=== PATIENT | female | born 1990 | race Caucasian/White ===

== ENCOUNTER 2021-10-23 19:38 | Emergency (ER) | payer BC ==
[~2021-10-23] VITALS: Ht 170 cm; Wt 80.0 kg
[2021-10-23 19:43] VITALS: BP 124/74
--- NOTE | 2021-10-23 20:32 | ED Lower Extremity ---
General Chief Complaint: Laceration Stated Complaint: FALL,L KNEE LAC Nursing Triage Note: Pt c/o left knee pain after walking on a gravel and falling onto it. Pt has cut to left knee and abrasions but bleeding in controlled. Denies LOC, head injury or any other injuries. Pt unsure of last tetanus and reports she would like to recieve one. Ambulatory with steady gait into ED. Source: patient History of Present Illness Date Seen by Provider: Oct 23, 2021 Time Seen by Provider: 19:44 Initial Comments 30-year-old female presenting with complaints of falling on gravel road. She states that her right ankle rolls and gives out on her periodically. She was walking while carrying her baby in a carrier and her ankle rolled. She landed on her left knee and has abrasions and bleeding. She was unsure of her last tetanus. She has able to ambulate with minimal pain. She has no other injuries. She denies hitting her head or losing consciousness. She did not take anything for pain prior to coming to the emergency department. Location Injury Occurred: Gravel road by her house Onset: just prior to arrival Severity: mild Pain/Injury Location: left knee Method of Injury: fell Modifying Factors: Worse With Movement Allergies and Home Medications Allergies Coded Allergies: No Known Allergies (Verified Allergy, Unknown, 10/23/21) Patient Home Medication List Home Medication List Reviewed: Yes Amoxicillin/Potassium Clav (Amox Tr-K Clv 875-125 mg Tab) 875 Mg-125 Mg Tablet, 1 EACH PO BID Prescribed by: NICOLA AGUILERA on 10/23/212128 Review of Systems Constitutional: No chills, No fever EENTM: no symptoms reported Respiratory: no symptoms reported Cardiovascular: no symptoms reported Gastrointestinal: no symptoms reported Genitourinary: no symptoms reported Musculoskeletal: see HPI Skin: see HPI Psychiatric/Neurological: Denies Numbness, Denies Paresthesia Past Cfxrony-Caktjb-Tvkqic Hx Patient Social History Tobacco Use?: No Use of E-Cig and/or Vaping dev: No Substance use?: No Alcohol Use?: No Pt feels they are or have been: No Immunizations Up To Date First/Initial COVID19 Vaccinat: denies Physical Exam Vital Signs Vital Signs - First Documented 10/23/21 19:43 Temp 36.3 Pulse 70 Resp 18 B/P (MAP) 124/74 (91) Pulse Ox 98 O2 Delivery Room Air Capillary Refill : Less Than 3 Seconds Height, Weight, BMI Height: '" Weight: lbs. oz. kg; 27.00 BMI Method: General Appearance: WD/WN, no apparent distress HEENT: PERRL/EOMI Cardiovascular: normal peripheral pulses Knees: left knee pain, left knee soft tissue tenderness, left knee swelling, left knee other (Abrasion and laceration to the left knee with gravel foreign bodies present) Neurologic/Tendon: normal sensation, normal motor functions, normal tendon functions Neurologic/Psychiatric: or nurse manager II-XII nml as tested, no motor/sensory deficits, alert, normal mood/affect, oriented x 3 Skin: warm/dry Procedures/Interventions Wound Location: Lower Extremities (left knee) Wound Length (cm): 4.3 Wound's Depth, Shape: irregular, contused tissue, sub Q Wound Explored: foreign body removed (several pieces of gravel removed) Irrigated w/ Saline (ccs): 100 Betadine Prep?: Yes Anesthesia: 1% Lidocaine Volume Anesthetic (ccs): 10 Wound Debrided: minimal Suture: Ethlion Suture Size: 4-0 Number of Sutures: 7 Layer Closure?: 1 Sterile Dressing Applied?: Yes Progress After obtaining verbal consent from the patient the wound was anesthetized with 1% plain lidocaine. A total of 10 mL of 1% plain lidocaine were infiltrated in the wound for anesthetic effect. Then the wound was cleaned with 100 mL of sterile water and chlorhexidine soap and then scrubbed with Betadine and gauze. There were several small pieces of gravel foreign body that were removed from the wound. Then using 4-0 Ethilon a total of 7 simple interrupted stitches were used to approximate the skin wound edges and close up the subcutaneous tissue. Patient tolerated procedure well and had good approximation of the skin edges. Counseled on follow-up and return precautions. Advised to have the stitches out after 10 to 14 days. Watch for signs of infection. Use ice and elevation to help with swelling and pain. 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 Progress/Results/Core Measures Results/Orders My Orders Orders - NICOLA AGUILERA MD Dipht,Pertuss(Acell),Tet Adult (Boostrix (10/23/21 20:45) Ice: Apply To Affected Area (10/23/21 20:32) Lidocaine 1% Inj 50 Ml (Xylocaine 1% Inj (10/23/21 20:44) Amoxicillin/Clavulanate Tablet (Augmenti (10/23/21 20:44) Suture Set At Bedside (10/23/21 20:44) Wound Dressing-Ed (10/23/21 20:44) Medications Given in ED Current Medications Medications Dose Ordered Sig/Radha Route Start Time Stop Time Status Last Admin Dose Admin Diphtheria/ Tetanus/Acell Pertussis 0.5 ml ONCE ONCE IM 10/23/21 20:45 10/23/21 20:46 DC 10/23/21 20:36 0.5 ML Vital Signs/I&O 10/23/21 19:43 Temp 36.3 Pulse 70 Resp 18 B/P (MAP) 124/74 (91) Pulse Ox 98 O2 Delivery Room Air Blood Pressure Mean: 91 Progress Progress Note : Progress Note Wound was anesthetized to be able to clean and scrubbed with saline, chlorhexidine scrub soap and Betadine with gauze pads. Several gravel foreign bodies were removed. Patient was counseled that there could still be some small foreign bodies not seen. Started on Augmentin for antibiotic as a prophylaxis. Also updated tetanus booster. Counseled on follow-up and return precautions. Advised to have stitches out in 10 to 14 days. Watch for signs of infection prior to that. Departure Impression Primary Impression: Laceration with foreign body, left knee, initial encounter Additional Impressions: Abrasion, left knee, initial encounter Contusion of left knee, initial encounter Disposition: 01 HOME, SELF-CARE Condition: Stable Departure-Patient Inst. Decision time for Depature: 21:27 Referrals: NO,LOCAL PHYSICIAN (PCP) Primary Care Physician [facility] Patient Instructions: Foreign Body in Skin ED, Laceration Repair With Stitches ED, Minor Contusion ED Add. Discharge Instructions: Keep wound clean and dry for the first 24 hours. After that you may remove the dressing and wash with soap and water as needed. Do not soak the wound. May apply antibiotic ointment 1-2 times a day as needed to help prevent infection. Try to limit bending of your knee past 90 degrees for the first week. The stitches need to stay in at least 10 to 14 days to let the laceration heal. If you are seeing signs of infection such as redness streaking up your leg, fever over 101 Fahrenheit, pus coming from the wound you should be reevaluated as you may need IV antibiotics rather than just the oral antibiotics you are being prescribed Consider using an Jabier bandage for compression to help give extra support to your knee. Ice 15 to 20 minutes every few hours while awake to help with swelling and pain. May take acetaminophen or ibuprofen if needed for pain All discharge instructions reviewed with patient and/or family. Voiced understanding. Scripts Amoxicillin/Potassium Clav (Amox Tr-K Clv 875-125 mg Tab) 875 Mg-125 Mg Tablet 1 EACH PO BID for laceration for 7 Days, #14 TAB 0 Refills Prov: NICOLA AGUILERA MD 10/23/21 NICOLA AGUILERA MD Oct 23, 2021 20:31
[2021-10-23] MEDS ORDERED: AUGMENTIN 875 MG TAB (AMOXICILLIN/CLAVULANATE) PO STA (20:44)
[2021-10-23] MEDS ORDERED: LIDOCAINE 1% INJ 50 ML (XYLOCAINE) VIAL IJ STA (20:44)
[2021-10-23] MEDS ORDERED: TETANUS,DIPTH,PERTUSS P/F (BOOSTRIX) 0.5 ML VIAL IM ONE (20:45)
[2021-10-23] MEDS ORDERED: AMOX1TAB12 PO (21:29)
== END 2021-10-23 21:33 | disposition home or self-care (01) ==
LOC: ER FS 19:41
DX: S81.022A Laceration with foreign body, left knee, initial encounter (principal); Z23 Encounter for immunization; Z28.310 Unvaccinated for COVID-19; W18.39XA Other fall on same level, initial encounter; Y93.01 Activity, walking, marching and hiking; Y92.410 Unspecified street and highway as the place of occurrence of the external cause
CPT/HCPCS: 12002; 90471; 90715

== ENCOUNTER → 2022-02-20 | Outpatient (CLI) | payer BC ==
[~2022-02-20] MED LIST: AMOX1TAB12 PO
--- NOTE | 2022-02-20 11:05 | Diagnostic Imaging Report ---
PROCEDURE: MRI lumbar spine. TECHNIQUE: Multiplanar, multisequence MRI of the lumbar spine was performed without contrast. DATE: February 20, 2022. COMPARISON: None. INDICATION: 31-year-old female, low back pain. FINDINGS: The alignment of the lumbar spine is unremarkable. The bone marrow signal is unremarkable. The visualized cord and conus medullaris is unremarkable and terminates at the T12-L1 level. The disc heights are well preserved. There is no disc dessication. L1-L2: There is no disc bulge. The facet joints and ligamentum flavum are unremarkable. There is no foraminal narrowing. There is no spinal canal stenosis. L2-L3: There is no disc bulge. The facet joints and ligamentum flavum are unremarkable. There is no foraminal narrowing. There is no spinal canal stenosis. L3-L4: There is no disc bulge. The facet joints and ligamentum flavum are unremarkable. There is no foraminal narrowing. There is no spinal canal stenosis. L4-L5: There is a small right paracentral disc protrusion without identified nerve root contact. The facet joints and ligamentum flavum are unremarkable. There is no foraminal narrowing. There is no spinal canal stenosis. L5-S1: There is a small broad-based posterior disc protrusion. There is mild narrowing of the bilateral lateral recesses. The facet joints and ligamentum flavum are unremarkable. There is no high-grade foraminal narrowing. There is no spinal canal stenosis. IMPRESSION: 1. Small right paracentral disc protrusion at L4-L5 without nerve root contact, foraminal narrowing, or spinal stenosis. 2. Small broad-based posterior disc protrusion at L5-S1 with mild narrowing of bilateral lateral recesses. 3. No focal concerning bone lesion. Dictated by: Dictated on workstation # [id number]
== END ==
LOC: RAD 09:55
PROVIDERS: ATTEND Chiropractor
DX: M51.26 Other intervertebral disc displacement, lumbar region (principal); M51.27 Other intervertebral disc displacement, lumbosacral region; M48.07 Spinal stenosis, lumbosacral region
CPT/HCPCS: 72148